=== PATIENT | female | born 1965 | race Caucasian/White ===

== ENCOUNTER 2019-04-22 19:30 | Emergency (ER) | payer BC, OTHER ==
[2019-04-22 20:34] VITALS: BP 122/48
[2019-04-22] MEDS ORDERED: LORazepam 1 MG Tab PO ONE (21:17)
--- NOTE | 2019-04-22 21:23 | EDM.PDOCBH ---
ED HPI GENERAL MEDICAL PROBLEM - General Chief Complaint: Behavioral/Psych Stated Complaint: ANXIETY Time Seen by Provider: 04/22/19 20:51 Source of Information: Reports: Patient, Family () History Limitations: Reports: No Limitations - History of Present Illness INITIAL COMMENTS - FREE TEXT/NARRATIVE: The patient states that she has been crying for the past 3 days, after her youngest son went to college at [employer]. The patient also reports feeling "on edge, along with a stomachache and a headache for the past 24 hours. She acknowledges that she feels anxious, but denies feeling suicidal, and denies any prior attempt at self-harm. The patient states that she had similar symptoms, several years ago, when her older son went to [place]. She states that she had those symptoms for about one week. She did not seek medical evaluation at that time. The patient is on citalopram 40 mg per day, prescribed by her PCP. She states that she is compliant with all of her medications. She states that she had been given Ativan for an MRI in the past, but she does not take it regularly. The patient's volunteered that the patient took 0.5 mg of Ativan, prescribed to one of her sons, today. She states that it made her feel better, briefly. No recent illness, such as fever, chills, cough, dyspnea, chest discomfort, palpitations, nausea, vomiting, constipation, diarrhea, abdominal pain, urinary symptoms, recent weight gain or weight loss, bloody bowel movements, black bowel movements, joint aches, or rashes. The patient's PCP is Dr. Wily Humphreys. Her Radio Rigger is Dr. Chaim Mcleod. Her Manager Apple is Dr. All White. Headache Pain Score (Numeric/FACES): 6 - Related Data Allergies Allergy/AdvReac Type Severity Reaction Status Date / Time cefazolin sodium [From Ancef] Allergy Rash Verified 04/15/16 19:30 dipyridamole Allergy Cannot Verified 04/15/16 19:30 [From Persantine] Remember vancomycin Allergy Rash Verified 04/15/16 19:30 Home Meds: Home Meds Citalopram Hydrobromide [Citalopram HBr] 1 tab PO DAILY 09/21/14 [History] cycloSPORINE [Cyclosporine] 75 mg PO BID 09/22/14 [History] Ca/D3/Mag#11/Zinc/Business Technology Professor/Abdi/Bor [Caltrate 600+D Plus Tablet] 1 each PO DAILY [History] Multivitamin [Multi-Vitamin Daily] 1 tab PO DAILY 04/15/16 [History] Esomeprazole Magnesium [Nexium] 40 mg PO DAILY 04/22/19 [History] LORazepam [Ativan] 1 tab PO Q12H #6 tablet 04/22/19 [Rx] Nadolol [Naldol] 40 mg PO DAILY 04/22/19 [History] Pravastatin [Pravachol] 20 mg PO DAILY 04/22/19 [History] Sulfamethoxazole/Trimethoprim [Bactrim Ds Tablet] 0.5 tab PO DAILY 04/22/19 [ History] predniSONE [Prednisone] 5 mg PO DAILY 04/22/19 [History] Past Medical History HEENT History: Reports: Allergic Rhinitis Cardiovascular History: Reports: Arrhythmia (SVT) Gastrointestinal History: Reports: GERD Genitourinary History: Reports: Other (See Below) (Renal failure requiring hemodialysis as a child, until she received a kidney transplant at 21 years old) 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: Psychiatric History: Reports: Depression Immunologic History: Reports: Other (See Below) (IgA vasculitis (Henoch- Schnlein purpura) since 13 years old) Oncologic (Cancer) History: Reports: Squamous Cell Carcinoma (bilateral forearms ) - Past Surgical History Cardiovascular Surgical History: Reports: Vascular Surgery (RUE AVF, since removed) GI Surgical History: Reports: Appendectomy (1986) Female Surgical History: Reports: Section (x 3, , , ), Hysterectomy (partial), Other (See Below) (Living related kidney transplant at 21 years old) Musculoskeletal Surgical History: Reports: Arthroscopic Knee (left), Other (See Below) (Right bunionectomy 1987) Oncologic Surgical History: Reports: Other (See Below) (SCC excised from bilateral forearms , , ) Dermatological Surgical History: Reports: Other (See Below) (Benign fatty tumor excised from left axilla) Social & Family History - Family History Family Medical History: Noncontributory - Tobacco Use Smoking Status *Q: Never Smoker - Caffeine Use Caffeine Use: Reports: Coffee - Alcohol Use Alcohol Use History: Yes Alcohol Use Frequency: Rarely - Recreational Drug Use Recreational Drug Use: No - Living Situation & Occupation Living situation: Reports: , with Spouse 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 ED EXAM, BEHAVIORAL HEALTH - Physical Exam Exam: See Below Exam Limited By: No Limitations General Appearance: Alert, WD/WN, Other (Crying) Eye Exam: Bilateral Eye: EOMI, Normal Inspection Ears: Normal External Exam, Hearing Grossly Normal Nose: Normal Inspection Throat/Mouth: Normal Inspection, Normal Lips, Normal Voice, No Airway Compromise Head: Atraumatic, Normocephalic Neck: Normal Inspection, Full Range of Motion Respiratory/Chest: No Respiratory Distress, Lungs Clear, Normal Breath Sounds, No Accessory Muscle Use Cardiovascular: Normal Peripheral Pulses, Regular Rate, Rhythm, No Gallop, No JVD, No Murmur, No Rub GI/Abdominal: Normal Bowel Sounds, Soft, Non-Tender, No Organomegaly, No Distention, No Abnormal Bruit (Female) Exam: Deferred Rectal (Female) Exam: Deferred Back Exam: Normal Inspection, Full Range of Motion, NT Extremities: Normal Inspection, Normal Range of Motion, No Pedal Edema, Normal Capillary Refill Neurological: Alert, Normal Cognition, No Motor/Sensory Deficits, Oriented x 3 Psychiatric: Tearful Skin Exam: Warm, Dry, Intact, Normal color, No rash COURSE, BEHAVIORAL HEALTH COMP - Course Vital Signs: Last Vital Signs Temp 36.8 C 04/22/19 20:31 Pulse 69 04/22/19 20:31 Resp 20 04/22/19 20:31 BP 122/48 L 04/22/19 20:31 Pulse Ox 98 04/22/19 20:31 Orders, Labs, Meds: Medications Discontinued Medications Generic Name Dose Route Start Last Admin Trade Name Joseluisq PRN Reason Stop Dose Admin Lorazepam 1 mg 04/22/19 21:17 04/22/19 21:21 Ativan PO 04/22/19 21:18 1 mg ONETIME ONE Administration Medical Clearance: 04/22/19 21:19 As per the HPI, the patient has been crying for about 3 days, after her son went off to college. She states that she is not suicidal or homicidal, but she does feel anxious. I recommended that perhaps the patient contact her son by Facetime or Skype, or talk on the phone, or go visit him, or that she engage in other activities, but the patient's stated that this has been going on for 3 days, and he would like us to put a stop to it now. The patient states that she took a single dose of her son's Ativan today, and that it helped briefly. I explained that the only treatment options I have at this time would be to prescribe a benzodiazepine versus consider her for psychiatric admission, although, because she is not actually suicidal, she would not probably qualify. The patient does not want to be psychiatrically admitted. For today's purposes, the patient will be given 1 mg of oral Ativan, and I will discharge her home with a few days of 1 mg twice a day, however, the patient will need to contact her PCP first thing in the morning, to arrange to be seen. Both patient and her are agreeable to this plan. Departure - Departure Time of Disposition: 21:22 Disposition: Home, Self-Care 01 Condition: Good Clinical Impression: Sad mood - Discharge Information *PRESCRIPTION DRUG MONITORING PROGRAM REVIEWED*: Not Applicable *COPY OF PRESCRIPTION DRUG MONITORING REPORT IN PATIENT SATISH: Not Applicable Prescriptions: LORazepam [Ativan] 1 tab PO Q12H #6 tablet Referrals: Wily Humphreys MD [Primary Care Provider] - Chaim Mcleod MD [Ordering Only Provider] - All White MD [Ordering Only Provider] - Forms: ED Department Discharge Additional Instructions: You were seen in the emergency room after crying and feeling anxious for the past 3 days, after your son went to college. You have been started on the anti-anxiety medicine Ativan. A prescription for Ativan has been provided to you. Take one tablet of Ativan every 12 hours, starting tomorrow morning, 04/23/2019, as prescribed. It is essential that you follow-up with your PCP, Dr. Humphreys, at the next available appointment. Please contact his office first thing in the morning, and let them know that you are following up from the ER. If any other problems, please do not hesitate to return to the ER.
== END 2019-04-22 21:32 | disposition home or self-care (01) ==
LOC: JD.ED 19:30
DX: F39 Unspecified mood [affective] disorder (principal); K21.9 Gastro-esophageal reflux disease without esophagitis; F32.9 Major depressive disorder, single episode, unspecified; Z88.1 Allergy status to other antibiotic agents; Z88.8 Allergy status to other drugs, medicaments and biological substances; Z79.899 Other long term (current) drug therapy
CPT/HCPCS: 99283; A9270

== ENCOUNTER 2019-09-23 14:16 | Emergency (ER) | payer BC, OTHER ==
[2019-09-23 14:34] VITALS: BP 91/77; PULSE 84
--- NOTE | 2019-09-23 15:14 | EDM.PDOC ---
ED HPI GENERAL MEDICAL PROBLEM - General Chief Complaint: Respiratory Problem Stated Complaint: COUGH AND CONGESTION Time Seen by Provider: 09/23/19 15:09 Source of Information: Reports: Patient History Limitations: Reports: No Limitations - History of Present Illness INITIAL COMMENTS - FREE TEXT/NARRATIVE: Patient is an unfortunate 53-year-old female who presents emergency Department today with complaint of cough congestion runny nose and body aches. Patient reports that symptoms started 2 weeks ago and progressively worsened since. Patient reports that she was seen by her PCP 1 week ago and was diagnosed with a URI was given Tessalon Perles has had no improvement in symptoms so she went to see the urgent care 2 days ago at which time she had a chest x-ray which was reported as negative she was placed on Zithromax and Robitussin with codeine, the patient has history of a kidney transplant and takes daily prednisone she increased her prednisone 20 mg daily she's had no improvement of symptoms that she presented here for further evaluation Throat Pain Score (Numeric/FACES): 8 - Related Data Allergies Allergy/AdvReac Type Severity Reaction Status Date / Time cefazolin sodium [From Ancef] Allergy Rash Verified 09/23/19 14:34 dipyridamole Allergy Cannot Verified 09/23/19 14:34 [From Persantine] Remember vancomycin Allergy Rash Verified 09/23/19 14:34 Home Meds: Home Meds Citalopram Hydrobromide [Citalopram HBr] 1 tab PO DAILY 09/21/14 [History] cycloSPORINE [Cyclosporine] 75 mg PO BID 09/22/14 [History] Harvinder/D3/Mag11/Zinc/Stock Dealer/Abdi/Bor [Caltrate 600+D Plus Tablet] 1 each PO DAILY [History] Multivitamin [Multi-Vitamin Daily] 1 tab PO DAILY 04/15/16 [History] Esomeprazole Magnesium [Nexium] 40 mg PO DAILY 04/22/19 [History] LORazepam [Ativan] 1 tab PO Q12H #6 tablet 04/22/19 [Rx] Pravastatin [Pravachol] 20 mg PO DAILY 04/22/19 [History] Sulfamethoxazole/Trimethoprim [Bactrim Ds Tablet] 0.5 tab PO DAILY 04/22/19 [ History] nadoloL [Naldol] 40 mg PO DAILY 04/22/19 [History] predniSONE [Prednisone] 5 mg PO DAILY 04/22/19 [History] Acetaminophen [Tylenol Extra Strength] 500 mg PO BID PRN 09/23/19 [History] Azithromycin 250 mg PO ASDIRECTED 09/23/19 [History] Benzonatate [Tessalon Perle] 200 mg PO TID PRN 09/23/19 [History] Codeine Phosphate/Guaifenesin [Guaifen-Codeine 100-10 mg/5 ml] 5 ml PO Q4HR PRN 09/23/19 [History] Famotidine 20 mg PO BEDTIME 09/23/19 [History] Magnesium Gluconate 500 mg PO DAILY 09/23/19 [History] Past Medical History HEENT History: Reports: Allergic Rhinitis Cardiovascular History: Reports: Arrhythmia Gastrointestinal History: Reports: GERD Genitourinary History: Reports: Other (See Below) Other Genitourinary History: 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: Musculoskeletal History: Reports: Other (See Below) Psychiatric History: Reports: Depression Immunologic History: Reports: Other (See Below) Oncologic (Cancer) History: Reports: Squamous Cell Carcinoma - Past Surgical History Cardiovascular Surgical History: Reports: Vascular Surgery GI Surgical History: Reports: Appendectomy Female Surgical History: Reports: Section, Hysterectomy, Other (See Below) Musculoskeletal Surgical History: Reports: Arthroscopic Knee, Other (See Below) Oncologic Surgical History: Reports: Other (See Below) Dermatological Surgical History: Reports: Other (See Below) Social & Family History - Family History Family Medical History: Noncontributory - Tobacco Use Smoking Status *Q: Never Smoker - Caffeine Use Caffeine Use: Reports: Coffee - Recreational Drug Use Recreational Drug Use: No - Living Situation & Occupation Living situation: Reports: , with Spouse 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 Denies: Fever, Chills HEENT: Reports: Rhinitis, Sinus Problem, Throat Pain Respiratory: Reports: Cough, Sputum (yellow) ED EXAM, GENERAL - Physical Exam Exam: See Below Exam Limited By: No Limitations General Appearance: Alert, WD/WN, Mild Distress Ears: Normal External Exam, Normal Canal, Hearing Grossly Normal, Normal TMs Nose: Normal Inspection, Normal Mucosa, No Blood Throat/Mouth: Other (All posterior erythema with postnasal drip) Respiratory/Chest: No Respiratory Distress, Lungs Clear, No Accessory Muscle Use , Chest Non-Tender, Other (Bronchial breath sounds) Cardiovascular: Normal Peripheral Pulses, Regular Rate, Rhythm, No Edema, No Gallop, No JVD, No Murmur, No Rub GI/Abdominal: Normal Bowel Sounds, Soft, Non-Tender, No Organomegaly, No Distention, No Abnormal Bruit, No Mass Back Exam: Normal Inspection, Full Range of Motion, NT Extremities: Normal Inspection Neurological: Alert Skin Exam: Warm, Dry Course - Vital Signs Last Recorded V/S: Last Vital Signs Temp 98.1 F 09/23/19 14:28 Pulse 84 09/23/19 14:28 Resp 20 09/23/19 14:28 BP 91/77 09/23/19 14:28 Pulse Ox 98 09/23/19 14:28 - Re-Assessments/Exams Free Text/Narrative Re-Assessment/Exam: 09/23/19 16:28 A chest flu screen is negative however secondary to symptoms and endemic flu we will treat as such Departure - Departure Time of Disposition: 16:29 Disposition: Home, Self-Care 01 Clinical Impression: Influenza - Discharge Information Referrals: Wily Humphreys MD [Primary Care Provider] - Forms: ED Department Discharge, ED Return to Work/School Form Additional Instructions: Home, rest, Tylenol or Motrin for fever or pain, continue current medications, return as needed for worsening condition Sepsis Event Note - Evaluation Sepsis Screening Result: No Definite Risk - Focused Exam Vital Signs: Vital Signs Temp Pulse Resp BP Pulse Ox 09/23/19 14:28 98.1 F 84 20 91/77 98 Date Exam was Performed: 09/23/19 Time Exam was Performed: 16:28
== END 2019-09-23 17:05 | disposition home or self-care (01) ==
LOC: JD.ED 14:16
DX: J11.1 Influenza due to unidentified influenza virus with other respiratory manifestations (principal); K21.9 Gastro-esophageal reflux disease without esophagitis; F32.9 Major depressive disorder, single episode, unspecified; Z88.1 Allergy status to other antibiotic agents; Z79.899 Other long term (current) drug therapy; Z90.49 Acquired absence of other specified parts of digestive tract; Z90.710 Acquired absence of both cervix and uterus
CPT/HCPCS: 87804; 99281; 99283

== ENCOUNTER 2021-04-03 10:55 | Emergency (ER) | payer BC, OTHER ==
--- NOTE | 2021-04-03 11:13 | EDM.PDOC ---
ED HPI GENERAL MEDICAL PROBLEM - General Chief Complaint: Respiratory Problem Stated Complaint: SOB Time Seen by Provider: 04/03/21 11:11 Source of Information: Reports: Patient, RN Notes Reviewed - History of Present Illness INITIAL COMMENTS - FREE TEXT/NARRATIVE: Pt has had worsening cough, dyspnea, palpitations for about 3 days. No fever or chills. Cough is nonprod. She had covid about 9 months ago. No known hx of heart or lung disease. - Related Data Allergies Allergy/AdvReac Type Severity Reaction Status Date / Time cefazolin sodium [From Ancef] Allergy Intermediate Rash Verified 04/03/21 11:23 vancomycin Allergy Intermediate Rash Verified 04/03/21 11:23 dipyridamole Allergy Unknown Cannot Verified 04/03/21 11:23 [From Persantine] Remember Home Meds: Home Meds Citalopram Hydrobromide [Citalopram HBr] 40 mg PO QPM 09/21/14 [History] cycloSPORINE [Cyclosporine] 75 mg PO BID 09/22/14 [History] Harvinder/D3/Mag11/Zinc/Co Chairman/Abdi/Bor [Caltrate 600+D Plus Tablet] 1 each PO QPM 04/15/16 [History] Multivitamin [Multi-Vitamin Daily] 1 tab PO QPM 04/15/16 [History] Esomeprazole Magnesium [Nexium] 40 mg PO DAILY 04/22/19 [History] Sulfamethoxazole/Trimethoprim [Bactrim Ds Tablet] 0.5 tab PO DAILY 04/22/19 [History] predniSONE [Prednisone] 5 mg PO DAILY 04/22/19 [History] Acetaminophen [Tylenol Extra Strength] 1,000 mg PO Q6H PRN 09/23/19 [History] Famotidine 20 mg PO BEDTIME 09/23/19 [History] Magnesium Gluconate 250 mg PO DAILY 09/23/19 [History] Calcium Carbonate [Tums] 500 mg PO BID 04/03/21 [History] LORazepam [Lorazepam] 1 mg PO BID PRN 04/03/21 [History] Latanoprost [Xalatan] 1 drop EYEBOTH BEDTIME 04/03/21 [History] Metoprolol Succinate [Toprol Xl] 25 mg PO DAILY 04/03/21 [History] Niacinamide 500 mg PO BID 04/03/21 [History] Non-Formulary Medication [NF Drug] 1 supp VAG ASDIRECTED 04/03/21 [History] Ondansetron [Zofran ODT] 4 mg PO Q6H PRN 04/03/21 [History] Pravastatin Sodium 10 mg PO QPM 04/03/21 [History] Prednisolone Acetate/Pf [Prednisolone Acet 1% Eye Drop] 1 drop EYERT DAILY 04/03/21 [History] buPROPion [buPROPion XL] 150 mg PO DAILY 04/03/21 [History] Past Medical History HEENT History: Reports: Allergic Rhinitis Cardiovascular History: Reports: Arrhythmia Gastrointestinal History: Reports: GERD Genitourinary History: Reports: Other (See Below) Other Genitourinary History: 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 Denies: Rhinitis, Throat Pain Respiratory: Reports: Shortness of Breath, Cough Cardiovascular: Denies: Chest Pain GI/Abdominal: Denies: Abdominal Pain, Nausea, Vomiting Musculoskeletal: Denies: Shoulder Pain, Arm Pain Skin: Reports: No Symptoms Neurological: Reports: No Symptoms ED EXAM, GENERAL - Physical Exam Exam: See Below General Appearance: Alert, No Apparent Distress Throat/Mouth: Normal Inspection Head: Atraumatic Neck: Supple Respiratory/Chest: No Respiratory Distress, Lungs Clear, Normal Breath Sounds. No: Rales, Rhonchi, Wheezing Cardiovascular: Regular Rate, Rhythm GI/Abdominal: Non-Tender Back Exam: No: CVA Tenderness (L), CVA Tenderness (R) Extremities: Normal Inspection. No: Pedal Edema, Leg Pain, Increased Warmth, Redness Neurological: Alert, Oriented, No Motor/Sensory Deficits Skin Exam: Warm, Dry, Normal Color Course - Vital Signs Last Recorded V/S: Last Vital Signs Temp 97.4 F 04/03/21 11:13 Pulse 83 04/03/21 11:13 Resp 20 04/03/21 11:13 BP 113/63 04/03/21 11:13 Pulse Ox 100 04/03/21 11:13 - Orders/Labs/Meds Labs: Laboratory Tests 04/03/21 Range/Units 11:55 SARS-CoV-2 RNA ([facility]) Negative (NEGATIVE) - Re-Assessments/Exams Free Text/Narrative Re-Assessment/Exam: 04/03/21 13:08 CXR clear, covid neg. O2 sats 100 % at time of discharge. Discharge instr. as documented. Departure - Departure Time of Disposition: 13:09 Disposition: Home, Self-Care 01 Condition: Fair Clinical Impression: Palpitations - Discharge Information Referrals: Wily Humphreys MD [Primary Care Provider] - Forms: ED Department Discharge Additional Instructions: Rest. Follow up clinic in about 7 to 10 days for recheck. Return to ED as needed if symptoms worsening in any way. Sepsis Event Note (ED) - Focused Exam Vital Signs: Vital Signs Temp Pulse Resp BP Pulse Ox 04/03/21 11:13 97.4 F 83 20 113/63 100
[2021-04-03 11:15] VITALS: BP 113/63; PULSE 83
--- NOTE | 2021-04-03 12:18 | CR ---
Chest: Portable view of the chest was obtained. Comparison: Prior chest x-ray on 09/21/14. Heart size and mediastinum are normal. Small hiatal hernia is seen. Minimal atelectasis is noted within the left lung base. Lungs otherwise are clear. Slight degenerative change is seen within the spine. Impression: 1. Findings as noted above. 2. Nothing acute is seen. Diagnostic code #2
== END 2021-04-03 13:25 | disposition home or self-care (01) ==
LOC: JD.ED 10:55
DX: R00.2 Palpitations (principal); Z88.1 Allergy status to other antibiotic agents; Z88.8 Allergy status to other drugs, medicaments and biological substances; Z20.822 Contact with and (suspected) exposure to COVID-19
CPT/HCPCS: 71045; 71045-26; 99283; 99285-25; U0002

== ENCOUNTER 2022-03-04 08:34 | Day surgery (SDC) | payer BC, OTHER ==
[~2022-03-04 08:34] MED LIST: Lactated Ringers 1,000 ML IV SCH; Lidocaine 1%/Sod Bicarbonate in NS 8.4% 1 ML Syringe IDERM PRN; Sodium Chloride 0.9% 10 ML Syringe FLUSH PRN; Sodium Chloride 0.9% 10 ML Syringe FLUSH SCH
[2022-03-04] MEDS ORDERED: Propofol 200 MG/20 ML SDV ONE (08:52)
[2022-03-04] MEDS ORDERED: fentaNYL 100 MCG/2 ML SDV ONE (08:52)
[2022-03-04] MEDS ORDERED: Lidocaine 1% 4 ML ONE (08:52)
[2022-03-04 11:48] VITALS: BP 110/69; PULSE 70
== END 2022-03-04 11:40 | disposition home or self-care (01) ==
LOC: JD.SDS 08:34
PROVIDERS: ATTEND Surgery
DX: K29.50 Unspecified chronic gastritis without bleeding (principal); K31.7 Polyp of stomach and duodenum; K44.9 Diaphragmatic hernia without obstruction or gangrene; F32.A Depression, unspecified; K21.9 Gastro-esophageal reflux disease without esophagitis; E78.00 Pure hypercholesterolemia, unspecified; Z88.8 Allergy status to other drugs, medicaments and biological substances; Z88.1 Allergy status to other antibiotic agents; Z79.899 Other long term (current) drug therapy; Z90.49 Acquired absence of other specified parts of digestive tract; Z98.890 Other specified postprocedural states
CPT/HCPCS: 43239; J2704; J3010; J7120; 00731

== ENCOUNTER 2022-04-08 08:39 | Observation (INO) | payer BC, OTHER ==
[~2022-04-08 08:39] MED LIST changes: +Bupivacaine 0.5%/EPINEPHrine 1:200,000 50 ML MDV ONE; +Midazolam 1 MG/ML 2 ML SDV ONE; +Propofol 200 MG/20 ML SDV ONE; +Rocuronium 50 MG/5 ML Vial ONE; -Sodium Chloride 0.9% 10 ML Syringe FLUSH SCH; +fentaNYL 250 MCG/5 ML SDV ONE
[2022-04-08] MEDS ORDERED: Lidocaine 1% 2 ML ONE (09:03)
[2022-04-08] MEDS ORDERED: Heparin Sodium 5,000 Units/ML Vial SUBCUT ONE (09:30)
[2022-04-08] MEDS ORDERED: Phenylephrine HCl In 0.9% NaCl 1 MG/10 ML Vial ONE (09:45)
[2022-04-08] MEDS ORDERED: Hydrocortisone Sodium Succinate 100 MG/2 ML SDV ONE (09:52)
[2022-04-08] MEDS ORDERED: Hydrocortisone Sodium Succinate 100 MG/2 ML SDV IV ONE (10:00)
[2022-04-08] MEDS ORDERED: Rocuronium 50 MG/5 ML Vial ONE (10:54)
[2022-04-08] MEDS ORDERED: Sugammadex Sodium 200 MG/2 ML VIAL ONE (10:57)
[2022-04-08] MEDS ORDERED: Ondansetron 4 MG/2 ML SDV IVPUSH PRN ×2 (11:30→12:26)
[2022-04-08] MEDS ORDERED: HYDROmorphone 0.5 MG/0.5 ML Syringe IVPUSH PRN (11:30)
[2022-04-08] MEDS ORDERED: fentaNYL 100 MCG/2 ML SDV IVPUSH PRN (11:30)
[2022-04-08] MEDS ORDERED: Ondansetron 4 MG/2 ML SDV ONE (11:50)
[2022-04-08] MEDS ORDERED: diphenhydrAMINE 50 MG/ML SDV ONE (12:10)
[2022-04-08] MEDS ORDERED: Promethazine 12.5 MG in Sodium Chloride 0.9% 50 ML IV PRN (12:26)
[2022-04-08] MEDS ORDERED: Acetaminophen 325 MG Tab PO SCH (12:30)
[2022-04-08] MEDS ORDERED: Lactated Ringers 1,000 ML IV SCH (12:30)
[2022-04-08] MEDS: Morphine 2 MG/ML SYRINGE IVPUSH PRN ×3 (14:38→23:29)
[2022-04-08] MEDS ORDERED: Heparin Sodium 5,000 Units/ML Vial SUBCUT SCH (17:30)
[2022-04-08] MEDS ORDERED: PRAVASTATIN SODIUM 10 MG PO SCH (18:00)
[2022-04-08] MEDS ORDERED: Citalopram 20 MG Tab PO SCH (18:00)
[2022-04-08] MEDS: oxyCODONE 5 MG Tab PO PRN ×2 (19:10→23:30)
[2022-04-08] MEDS: Sodium Chloride 0.9% 10 ML Syringe FLUSH SCH (19:11)
[2022-04-08] MEDS: Heparin Sodium 5,000 Units/ML Vial SUBCUT SCH (19:13)
[2022-04-08] MEDS: Acetaminophen 325 MG Tab PO SCH (19:14)
[2022-04-08] MEDS ORDERED: Latanoprost 0.005% Ophth Soln 2.5 ML Bottle EYEBOTH SCH (21:00)
[2022-04-08] MEDS: Simethicone 80 MG Tab.Chew PO PRN (23:33)
[2022-04-09] MEDS: Heparin Sodium 5,000 Units/ML Vial SUBCUT SCH ×2 (00:08→07:53)
[2022-04-09] MEDS: Acetaminophen 325 MG Tab PO SCH ×2 (00:09→07:43)
[2022-04-09] MEDS: Morphine 2 MG/ML SYRINGE IVPUSH PRN (03:05)
[2022-04-09 03:23] VITALS: PULSE 86
[2022-04-09] MEDS: oxyCODONE 5 MG Tab PO PRN ×2 (07:44→12:19)
[2022-04-09] MEDS: Simethicone 80 MG Tab.Chew PO PRN ×2 (07:54→12:18)
[2022-04-09] MEDS ORDERED: predniSONE 10 MG Tab PO SCH (09:00)
[2022-04-09] MEDS ORDERED: Sulfamethoxazole/Trimethoprim 800-160 MG Tab PO SCH ×2 (09:00)
[2022-04-09] MEDS ORDERED: predniSONE 5 MG Tab PO SCH (09:00)
[2022-04-09] MEDS ORDERED: Non-Formulary Medication 1 Each (Prednisolone Acetate/Pf [Prednisolone Acet 1% Eye Drop] 5 EYERT SCH (09:00)
[2022-04-09] MEDS ORDERED: Metoprolol Succinate 25 MG Tab.ER PO SCH ×2 (09:00)
[2022-04-09] MEDS ORDERED: buPROPion 150 MG Tab.ER PO SCH (09:00)
[2022-04-09] MEDS ORDERED: BUPROPION 150 MG PO SCH (09:00)
[2022-04-09 09:32] VITALS: BP 98/61
[2022-04-09] MEDS ORDERED: CYCLOSPORINE 25 MG PO SCH (10:15)
[2022-04-09] MEDS ORDERED: Magnesium Oxide 400 MG Tab PO SCH (11:00)
== END 2022-04-09 12:30 | disposition home or self-care (01) ==
LOC: JD.OB 08:39 → INTOOBSV 08:39
PROVIDERS: ADMIT Surgery; ATTEND Surgery
DX: K44.9 Diaphragmatic hernia without obstruction or gangrene (principal); K21.9 Gastro-esophageal reflux disease without esophagitis; J30.9 Allergic rhinitis, unspecified; E78.00 Pure hypercholesterolemia, unspecified; M19.90 Unspecified osteoarthritis, unspecified site; M54.2 Cervicalgia; G89.29 Other chronic pain; Z98.890 Other specified postprocedural states; Z86.16 Personal history of COVID-19; Z86.69 Personal history of other diseases of the nervous system and sense organs; Z88.5 Allergy status to narcotic agent; Z90.710 Acquired absence of both cervix and uterus; Z79.899 Other long term (current) drug therapy; Z79.2 Long term (current) use of antibiotics; Z88.1 Allergy status to other antibiotic agents
CPT/HCPCS: 36415; 43282; 80048; 85025; A9270; J1200; J1644; J1720; J2250; J2270; J2405; J2704; J3010; J3490; J7120

== ENCOUNTER 2022-05-29 17:57 | Inpatient (IN) | payer BC, OTHER ==
[2022-05-29] MEDS ORDERED: Morphine 2 MG/ML SYRINGE IVPUSH ONE ×2 (19:32→21:15)
[2022-05-29] MEDS ORDERED: Ondansetron 4 MG/2 ML SDV IVPUSH ONE ×2 (19:32→21:23)
[2022-05-29] MEDS ORDERED: Lactated Ringers 1,000 ML IV SCH (19:45)
[2022-05-29] MEDS ORDERED: Diatrizoate Meglumine/Diatrizoate Sodium 37% 120 ML Bottle PO ONE (20:36)
[2022-05-29] MEDS ORDERED: Lactated Ringers 1,000 ML IV ONE (23:21)
[2022-05-30] MEDS ORDERED: Ondansetron 4 MG/2 ML SDV IVPUSH ONE (00:36)
[2022-05-30] MEDS ORDERED: Ondansetron 4 MG/2 ML SDV IVPUSH PRN (00:45)
[2022-05-30] MEDS ORDERED: HYDROmorphone 0.5 MG/0.5 ML Syringe IVPUSH PRN (01:39)
[2022-05-30] MEDS: Prochlorperazine 10 MG/2 ML SDV IVPUSH PRN ×2 (02:02→08:19)
[2022-05-30] MEDS: Lactated Ringers 1,000 ML IV SCH ×2 (02:10→10:14)
[2022-05-30] MEDS ORDERED: Sulfamethoxazole/Trimethoprim 800-160 MG Tab PO SCH (09:00)
[2022-05-30] MEDS ORDERED: predniSONE 5 MG Tab PO SCH (09:00)
[2022-05-30] MEDS ORDERED: Acetaminophen 325 MG Tab PO PRN (09:00)
[2022-05-30] MEDS ORDERED: CYCLOSPORINE MODIFIED 25 MG PO SCH (09:00)
[2022-05-30] MEDS ORDERED: Metoclopramide 10 MG/2 ML SDV IVPUSH ONE (10:02)
[2022-05-30] MEDS ORDERED: LORazepam 2 MG/ML SDV IVPUSH ONE (10:03)
[2022-05-30] MEDS ORDERED: diphenhydrAMINE 50 MG/ML SDV IVPUSH ONE (10:04)
[2022-05-30] MEDS: Pantoprazole 40 MG Vial IV SCH ×2 (10:10→21:28)
[2022-05-30] MEDS: Prochlorperazine 10 MG/2 ML SDV IVPUSH SCH ×2 (15:42→21:36)
[2022-05-30] MEDS ORDERED: Metoclopramide 10 MG/2 ML SDV IVPUSH PRN (16:40)
[2022-05-30] MEDS ORDERED: Metoprolol Succinate 25 MG Tab.ER PO SCH (17:06)
[2022-05-30 20:01] VITALS: BP 101/64; PULSE 89
[2022-05-30] MEDS ORDERED: Latanoprost 0.005% Ophth Soln 2.5 ML Bottle EYEBOTH SCH (21:00)
[2022-05-31] MEDS ORDERED: Metoprolol Succinate 25 MG Tab.ER PO SCH (08:00)
[2022-05-31] MEDS ORDERED: Dextrose 5%-Lactated Ringers 1,000 ML IV ONE (08:47)
[2022-05-31] MEDS ORDERED: Sulfamethoxazole/Trimethoprim 800-160 MG Tab PO ONE (09:00)
[2022-05-31] MEDS ORDERED: predniSONE 5 MG Tab PO ONE (09:00)
[2022-05-31] MEDS ORDERED: Metoprolol Succinate 25 MG Tab.ER PO ONE (09:00)
[2022-05-31] MEDS ORDERED: Pantoprazole 40 MG Vial IV ONE ×2 (09:00→20:01)
[2022-05-31] MEDS ORDERED: Prochlorperazine 10 MG/2 ML SDV IVPUSH ONE (09:25)
[2022-05-31] MEDS ORDERED: Magnesium Sulfate/Water 50 ML ONE (12:50)
[2022-05-31] MEDS ORDERED: Magnesium Sulfate/Water 2 GM in Premix Bag 1 BAG IV ONE (13:00)
[2022-05-31] MEDS ORDERED: HYDROmorphone 0.5 MG/0.5 ML Syringe IVPUSH ONE (18:25)
[2022-05-31] MEDS ORDERED: Dextrose 5%-Lactated Ringers 1,000 ML ONE (20:12)
[2022-06-01] MEDS ORDERED: Dextrose 5%-Lactated Ringers 1,000 ML ONE ×2 (04:23→13:07)
[2022-06-01] MEDS ORDERED: Dextrose 5%-Lactated Ringers 1,000 ML IV ONE (04:25)
[2022-06-01] MEDS ORDERED: Furosemide 20 MG/2 ML VIAL ONE (08:25)
[2022-06-01] MEDS ORDERED: Pantoprazole 40 MG Vial IV ONE (09:00)
[2022-06-01] MEDS ORDERED: Sulfamethoxazole/Trimethoprim 800-160 MG Tab PO ONE (09:00)
[2022-06-01] MEDS ORDERED: Metoprolol Succinate 25 MG Tab.ER PO ONE (09:00)
[2022-06-01] MEDS ORDERED: predniSONE 5 MG Tab PO ONE (09:00)
[2022-06-01] MEDS ORDERED: Prochlorperazine 10 MG/2 ML SDV IV ONE (09:00)
[2022-06-01] MEDS ORDERED: HYDROmorphone 0.5 MG/0.5 ML Syringe IVPUSH ONE (10:30)
[2022-06-01] MEDS ORDERED: Potassium Chloride 20 MEQ Tab.ER ONE (13:45)
[2022-06-01] MEDS ORDERED: Magnesium Sulfate/Water 50 ML ONE (13:45)
[2022-06-01] MEDS ORDERED: Lidocaine 1% with EPINEPHrine 1:100,000 10 ML MDV ONE (15:12)
[2022-06-01] MEDS ORDERED: Bupivacaine 0.5% 10 ML SDV ONE (15:12)
[2022-06-01] MEDS ORDERED: oxyCODONE 5 MG Tab ONE (19:49)
[2022-06-01] MEDS ORDERED: oxyCODONE 5 MG Tab PO ONE (20:00)
[2022-06-02] MEDS ORDERED: oxyCODONE 5 MG Tab PO ONE (01:45)
[2022-06-02] MEDS ORDERED: Prochlorperazine 10 MG/2 ML SDV IVPUSH ONE (09:00)
[2022-06-02] MEDS ORDERED: predniSONE 5 MG Tab PO ONE (09:00)
[2022-06-02] MEDS ORDERED: Latanoprost 0.005% Ophth Soln 2.5 ML Bottle EYEBOTH ONE (09:00)
[2022-06-02] MEDS ORDERED: Pantoprazole 40 MG Vial IV ONE (09:00)
[2022-06-02] MEDS ORDERED: Metoprolol Succinate 25 MG Tab.ER PO ONE (09:00)
[2022-06-02] MEDS ORDERED: Sulfamethoxazole/Trimethoprim 800-160 MG Tab PO ONE (09:00)
[2022-06-02] MEDS ORDERED: oxyCODONE 5 MG Tab ONE ×3 (11:54→21:56)
[2022-06-02] MEDS ORDERED: Potassium Chloride 20 MEQ Tab.ER ONE (11:54)
[2022-06-02] MEDS ORDERED: Magnesium Oxide 400 MG Tab ONE (11:55)
[2022-06-02] MEDS ORDERED: Potassium Chloride 20 MEQ Tab.ER PO ONE (11:57)
[2022-06-02] MEDS ORDERED: HYDROmorphone 0.5 MG/0.5 ML Syringe IVPUSH ONE (12:35)
[2022-06-02] MEDS ORDERED: Prochlorperazine 10 MG/2 ML SDV ONE (14:46)
[2022-06-03] MEDS ORDERED: oxyCODONE 5 MG Tab ONE (04:40)
== END 2022-06-03 12:15 | disposition home or self-care (01) | DRG 263 ==
LOC: JD.ED 17:57 → JD.OB 05-30 00:09 → JD.ZCENSUS 05-31 10:49
PROVIDERS: ADMIT Hospitalist; ATTEND Hospitalist
PROC: 0FT44ZZ Resection of Gallbladder, Percutaneous Endoscopic Approach (ICD-10-PCS; principal; 2022-06-01)
DX: K85.10 Biliary acute pancreatitis without necrosis or infection (principal); K85.90 Acute pancreatitis without necrosis or infection, unspecified; E78.00 Pure hypercholesterolemia, unspecified; K44.9 Diaphragmatic hernia without obstruction or gangrene; K21.9 Gastro-esophageal reflux disease without esophagitis; M19.90 Unspecified osteoarthritis, unspecified site; G89.29 Other chronic pain; M54.2 Cervicalgia; E78.5 Hyperlipidemia, unspecified; H54.7 Unspecified visual loss; F32.A Depression, unspecified; D84.9 Immunodeficiency, unspecified; Z86.16 Personal history of COVID-19; Z86.19 Personal history of other infectious and parasitic diseases; Z90.49 Acquired absence of other specified parts of digestive tract; Z88.1 Allergy status to other antibiotic agents; Z91.09 Other allergy status, other than to drugs and biological substances; Z94.0 Kidney transplant status; Z79.899 Other long term (current) drug therapy; Z79.52 Long term (current) use of systemic steroids; Z90.710 Acquired absence of both cervix and uterus
CPT/HCPCS: 00790; 36415; 74176; 74176-26; 76000; 76000-26; 76705; 76705-26; 80048; 80053; 80061; 81003; 82248; 82947; 83605; 83690; 83735; 85025; 85027; 93005; 94760; 96361; 96374; 96375; 96376; 99285; 99285-25; A9270-GY; C9113; J0780; J1170; J1200; J2060; J2270; J2405; J2765; J3475; J3490; J7120; J7121; J7512; J7515; Q9963

== ENCOUNTER 2022-06-05 09:28 | Emergency (ER) | payer BC ==
[2022-06-05] MEDS ORDERED: Lactated Ringers 500 ML IV ONE (09:59)
[2022-06-05] MEDS ORDERED: Ondansetron 4 MG/2 ML SDV IVPUSH ONE ×2 (10:00→12:04)
[2022-06-05] MEDS ORDERED: Lactated Ringers 1,000 ML IV SCH (10:00)
[2022-06-05] MEDS ORDERED: Cholestyramine/Sucrose Powder 4 GM Packet PO ONE (13:21)
[2022-06-05 16:49] VITALS: BP 99/66; PULSE 68
== END 2022-06-05 14:08 | disposition home or self-care (01) ==
LOC: JD.ED 09:28
DX: R19.7 Diarrhea, unspecified (principal); R11.2 Nausea with vomiting, unspecified; E78.00 Pure hypercholesterolemia, unspecified; K21.9 Gastro-esophageal reflux disease without esophagitis; Z88.1 Allergy status to other antibiotic agents; Z91.048 Other nonmedicinal substance allergy status; Z79.899 Other long term (current) drug therapy; Z90.49 Acquired absence of other specified parts of digestive tract
CPT/HCPCS: 36415; 80053; 82248; 83690; 85025; 96361; 96374; 96376; 99284; A9270; J2405; J7120

== ENCOUNTER 2022-06-09 01:22 | Emergency (ER) | payer BC ==
[2022-06-09] MEDS ORDERED: Ondansetron 4 MG/2 ML SDV IVPUSH ONE (01:45)
[2022-06-09] MEDS ORDERED: Sodium Chloride 0.9% 1,000 ML IV SCH (01:45)
[2022-06-09] MEDS ORDERED: HYDROmorphone 0.5 MG/0.5 ML Syringe ONE ×3 (01:50→06:19)
[2022-06-09] MEDS ORDERED: HYDROmorphone 0.5 MG/0.5 ML Syringe IVPUSH ONE ×3 (01:59→07:00)
[2022-06-09 02:12] LABS: ESTIMATED GFR 67 mL/min (>60)
[2022-06-09] MEDS: Potassium Chloride 10 MEQ in Premix Bag 1 BAG IV SCH ×4 (03:00→06:00)
[2022-06-09] MEDS ORDERED: Metoclopramide 10 MG/2 ML SDV ONE (03:34)
[2022-06-09] MEDS ORDERED: Metoclopramide 10 MG/2 ML SDV IVPUSH ONE (03:57)
[2022-06-09] MEDS ORDERED: Lidocaine 2% 11 ML Jelly Filled Syringe ONE (04:06)
[2022-06-09 08:14] VITALS: BP 105/79; PULSE 105
== END 2022-06-09 07:57 | disposition critical access hospital (66) ==
LOC: JD.ED 01:22
DX: K85.90 Acute pancreatitis without necrosis or infection, unspecified (principal); E87.6 Hypokalemia; E78.00 Pure hypercholesterolemia, unspecified; Z88.1 Allergy status to other antibiotic agents; Z91.048 Other nonmedicinal substance allergy status; Z88.8 Allergy status to other drugs, medicaments and biological substances; Z79.899 Other long term (current) drug therapy; Z86.16 Personal history of COVID-19; Z90.49 Acquired absence of other specified parts of digestive tract; Z90.710 Acquired absence of both cervix and uterus
CPT/HCPCS: 36415; 43752; 74176; 80053; 82248; 83690; 83735; 85025; 86140; 96361; 96365; 96366; 96375; 96376; 99285; A9270; J1170; J2405; J2765; J3480; J7030

== ENCOUNTER 2024-12-14 19:43 | Emergency (ER) | payer BC, OTHER ==
[2024-12-14] MEDS ORDERED: Sodium Chloride 0.9% 10 ML Syringe FLUSH PRN ×2 (20:22→20:26)
[2024-12-14] MEDS ORDERED: Iopamidol 755 Mg/ML 100 ML Bottle IVPUSH ONE (20:26)
[2024-12-14] MEDS ORDERED: Sodium Chloride 0.9% 45 ML IV SCH (20:30)
[2024-12-14 20:46] LABS: BASOPHILS ABSOLUTE AUTO 0.1 K/mm3 (0.0-0.2); BASOPHILS PERCENT AUTO 1.1 % (0.0-1.0); EOSINOPHILS ABSOLUTE AUTO 0.4 K/mm3 (0.0-0.4); EOSINOPHILS PERCENT AUTO 6.8 % (0.0-6.0); HEMATOCRIT 33.6 % (37.0-47.0); HEMOGLOBIN 11.3 gm/dl (12.0-16.0); IMMATURE GRAN ABSOLUTE AUTO 0.01 K/mm3 (0.00-0.05); IMMATURE GRAN PERCENT AUTO 0.2 % (0.0-0.4); LYMPHOCYTES PERCENT AUTO 46.9 % (24.0-44.0); MEAN CORPUSCULAR HEMOGLOBIN 35.2 pg (28.0-32.0); MEAN CORPUSCULAR HGB CONC 33.6 g/dl (32.0-36.0); MEAN CORPUSCULAR VOLUME 104.7 fl (83.0-99.0); MEAN PLATELET VOLUME 10.6 fl (9.4-12.3); MONOCYTES ABSOLUTE AUTO 0.7 K/mm3 (0.0-0.8); MONOCYTES PERCENT AUTO 10.3 % (0.0-8.0); NEUTROPHILS ABSOLUTE AUTO 2.2 K/mm3 (1.8-7.7); NEUTROPHILS PERCENT AUTO 34.7 % (41.0-71.0); PLATELET COUNT,PLT 258 K/mm3 (150-400); RED BLOOD CELL COUNT 3.21 M/mm3 (4.10-5.30); WHITE BLOOD CELL COUNT,WBC 6.29 K/mm3 (3.9-11.3)
[2024-12-14 21:04] LABS: INR 0.97; PROTHROMBIN TIME 10.3 SECONDS (9.7-12.0)
[2024-12-14 21:05] LABS: PTT,PARTIAL THROMBOPLSTIN TIME 23.6 SECONDS (21.7-31.4)
[2024-12-14 21:17] LABS: ALBUMIN 3.4 g/dl (3.4-5.0); ANION GAP 11.6 (5-15); BILIRUBIN TOTAL 0.5 mg/dL (0.2-1.0); BUN/CREATININE RATIO 17.3 (14-18); CALCIUM 8.7 mg/dL (8.5-10.1); CREATININE 1.1 mg/dL (0.55-1.02); EST CRCL DRUG DOSING (CG) 46.43 mL/min; MAGNESIUM 1.7 mg/dL (1.8-2.4); POTASSIUM,K 3.6 mEq/L (3.5-5.1); PROTEIN TOTAL,TP 6.9 g/dl (6.4-8.2)
[2024-12-14] MEDS: Aspirin 81 MG Tab.Chew PO ONE (21:39)
[2024-12-14 22:39] LABS: APPEARANCE,URINE CLEAR (Clear); BILIRUBIN,URINE NEGATIVE (Negative); COLOR,URINE YELLOW (Yellow); GLUCOSE,URINE NEGATIVE (Negative); KETONES,URINE NEGATIVE (Negative); LEUKOCYTE ESTERASE,URINE NEGATIVE (Negative); NITRITE,URINE NEGATIVE (Negative); OCCULT BLOOD,URINE NEGATIVE (Negative); PROTEIN,URINE NEGATIVE (Negative)
[2024-12-15] MEDS: Pravastatin 20 MG Tab PO ONE (00:38)
[2024-12-15 01:49] VITALS: BP 103/49; PULSE 70
[2024-12-15] MEDS ORDERED: Pravastatin 20 MG Tab PO ONE (21:18)
== END 2024-12-15 00:50 ==
LOC: JD.ED 19:43
DX: R42 Dizziness and giddiness (principal); R26.81 Unsteadiness on feet; E78.00 Pure hypercholesterolemia, unspecified; Z88.8 Allergy status to other drugs, medicaments and biological substances; Z91.048 Other nonmedicinal substance allergy status; Z79.899 Other long term (current) drug therapy; Z90.49 Acquired absence of other specified parts of digestive tract
CPT/HCPCS: 36415; 70450; 80053; 80307; 81003; 83735; 84484; 85025; 85610; 85730; 87428; 93005; 99285; A9270; 93010

== ENCOUNTER 2025-05-11 20:45 | Emergency (ER) | payer BC, OTHER ==
[2025-05-11] MEDS ORDERED: Naloxone 0.4 MG/ML SDV IVPUSH PRN (21:33)
[2025-05-11 21:53] LABS: BASOPHILS ABSOLUTE AUTO 0.1 K/mm3 (0.0-0.2); BASOPHILS PERCENT AUTO 1.1 % (0.0-1.0); EOSINOPHILS ABSOLUTE AUTO 0.6 K/mm3 (0.0-0.4); EOSINOPHILS PERCENT AUTO 6.5 % (0.0-6.0); IMMATURE GRAN ABSOLUTE AUTO 0.07 K/mm3 (0.00-0.05); IMMATURE GRAN PERCENT AUTO 0.8 % (0.0-0.4); LYMPHOCYTES ABSOLUTE AUTO 3.1 K/mm3 (1.0-4.8); LYMPHOCYTES PERCENT AUTO 37.0 % (24.0-44.0); MEAN PLATELET VOLUME 11.6 fl (9.4-12.3); MONOCYTES ABSOLUTE AUTO 0.7 K/mm3 (0.0-0.8); MONOCYTES PERCENT AUTO 8.6 % (0.0-8.0); NEUTROPHILS ABSOLUTE AUTO 3.9 K/mm3 (1.8-7.7); NEUTROPHILS PERCENT AUTO 46.0 % (41.0-71.0); NRBC ABSOLUTE 0.00 (0.00-0.02); NRBC PERCENT 0.0 % (0.0-0.2); PLATELET COUNT,PLT 181 K/mm3 (150-400); RED BLOOD CELL COUNT 3.24 M/mm3 (4.10-5.30); WHITE BLOOD CELL COUNT,WBC 8.40 K/mm3 (3.9-11.3)
[2025-05-11] MEDS: Sodium Chloride 0.9% 10 ML Syringe FLUSH PRN (21:55)
[2025-05-11] MEDS: Iopamidol 612 MG/ML 100 ML Bottle IVPUSH ONE (22:06)
[2025-05-11 22:16] LABS: A/G RATIO 1.0 (1-2); ALANINE AMINOTRANSFERASE,ALT 34.0 U/L (14-59); ASPARTATE AMNIOTRANSFERASE,AST 22.0 U/L (15-37); BILIRUBIN TOTAL 0.6 mg/dL (0.2-1.0); BLOOD UREA NITROGEN,BUN 21.0 mg/dL (7-18); CARBON DIOXIDE,CO2 25.0 mEq/L (21-32); CHLORIDE,CL 105.0 mEq/L (98-107); CREATINE KINASE,CK 22.0 U/L (26-192); CREATININE 0.9 mg/dL (0.55-1.02); EST CRCL DRUG DOSING (CG) 53.93 mL/min; ESTIMATED GFR 75.0 mL/min (>60); GLUCOSE RANDOM 135.0 mg/dL (70-99); POTASSIUM,K 3.9 mEq/L (3.5-5.1); PROTEIN TOTAL,TP 6.3 g/dl (6.4-8.2); SODIUM,NA 140.0 mEq/L (136-145)
[2025-05-11 22:25] LABS: ETHANOL BLOOD MEDICAL 0.0 gm% (0.00)
[2025-05-12] MEDS: Ondansetron 4 MG/2 ML SDV IVPUSH ONE (00:22)
[2025-05-12 02:02] VITALS: BP 83/52; PULSE 73
== END 2025-05-12 01:00 | disposition home or self-care (01) ==
LOC: JD.ED 20:45
DX: K29.00 Acute gastritis without bleeding (principal); T39.1X1A Poisoning by 4-Aminophenol derivatives, accidental (unintentional), initial encounter; R94.5 Abnormal results of liver function studies; E78.00 Pure hypercholesterolemia, unspecified; K21.9 Gastro-esophageal reflux disease without esophagitis; Z88.1 Allergy status to other antibiotic agents; Z88.8 Allergy status to other drugs, medicaments and biological substances; Z79.899 Other long term (current) drug therapy; Z86.16 Personal history of COVID-19; Z94.0 Kidney transplant status
CPT/HCPCS: 36415; 74176; 80053; 80307; 82550; 83690; 83735; 85025; 96365; 96375; 99284; A9270; J1308; J2405; J2470; J3475; J1171

== ENCOUNTER 2025-06-25 07:53 | Day surgery (SDC) | payer BC, OTHER ==
[~2025-06-25 07:53] MED LIST changes: -Bupivacaine 0.5%/EPINEPHrine 1:200,000 50 ML MDV ONE; -Lactated Ringers 1,000 ML IV SCH; -Lidocaine 1%/Sod Bicarbonate in NS 8.4% 1 ML Syringe IDERM PRN; -Midazolam 1 MG/ML 2 ML SDV ONE; -Propofol 200 MG/20 ML SDV ONE; -Rocuronium 50 MG/5 ML Vial ONE; +Sodium Chloride 0.9% 10 ML Syringe FLUSH SCH; -fentaNYL 250 MCG/5 ML SDV ONE
[2025-06-25] MEDS: Lactated Ringers 1,000 ML IV SCH (08:15)
[2025-06-25] MEDS ORDERED: Propofol 200 MG/20 ML SDV ONE ×2 (09:03→09:25)
[2025-06-25 10:47] VITALS: BP 101/57; PULSE 78
== END 2025-06-25 09:30 | disposition home or self-care (01) ==
LOC: JD.SDS 07:53
PROVIDERS: ATTEND Surgery
DX: R13.10 Dysphagia, unspecified (principal); R10.13 Epigastric pain; K21.9 Gastro-esophageal reflux disease without esophagitis; Z88.8 Allergy status to other drugs, medicaments and biological substances; Z98.890 Other specified postprocedural states; Z79.899 Other long term (current) drug therapy
CPT/HCPCS: 43239; J2003; J2704; J7120; 00731